=== PATIENT | male | born 1965 | race Caucasian/White ===

== ENCOUNTER 2017-07-12 05:23 | Day surgery (SDC) | payer OTHER ==
[~2017-07-12] VITALS: Ht 180.3 cm; Wt 88.5 kg
--- NOTE | ~2017-07-12 | O ---
[facility] [place] [address] OPERATIVE REPORT Name: AUBREY PADILLA [facility] [id number] Admission: 07/12/17 Attend Phys: Cecilio Pabon MD Discharge: 07/12/17 Date of : 67 Report #: [id number] THIS REPORT FOR: //name// CC: Sina Hoff DATE OF SERVICE: 07/12/2017 PREOPERATIVE DIAGNOSIS: Tumor of left lower lid, left medial canthus, and left upper lid. POSTOPERATIVE DIAGNOSES: Tumor of left lower lid, left medial canthus, and left upper lid, basal cell carcinoma with extension onto left cheek. PROCEDURE: Excision of tumor of left medial canthus, left upper lid, left lower lid and cheek with frozen section control of margins, fasciocutaneous flap repair of left lower lid and cheek with myocutaneous flap repair of left upper lid, and full thickness skin graft repair of medial canthal defect with silicone lacrimal intubation and nasal surgical video endoscopy. SURGEON: Cecilio Pabon M.D. WIRE TEMPERER: None. ANESTHESIA: General. COMPLICATIONS: None. INDICATIONS FOR SURGERY: This 51-year-old gentleman has a nodule or ulcerative lesion that is of considerable size in his left medial canthus that appears to be basal cell carcinoma. It directly overlies his lacrimal outflow tract. He presents today for excision of this lesion with frozen sections and subsequent repair of that defect. Informed consent was obtained to include but not limited to the potential risk for loss of vision, bleeding, infection, failure to improve the problem, and the potential need for further surgery or treatment. DESCRIPTION OF PROCEDURE: The patient was taken to the operating room where general anesthesia was administered. The left medial canthal area, the left upper lid, the left lower lid and the left cheek in addition to the left side of the nose were anesthetized with Xylocaine with epinephrine mixed with Marcaine and Wydase. The left side of the nose was then packed with an Afrin soaked cottonoid. The patient was subsequently prepped and draped in the usual sterile fashion. A fine tip skin marking pen was then utilized to outline the lesion including [facility] [address] [place] [address] OPERATIVE REPORT Name: AUBREY PADILLA Room #: DEP [facility] Fabricio.#: [id number] Admission: 07/12/17 Attend Phys: Cecilio Pabon MD Discharge: 07/12/17 Date of : 67 Report #: [id number] approximately 2 mm of normal appearing tissue around the margins of the lesion. The incisions were then made with a 15 blade around the circumference of the lesion. The initial incision went through the angular artery. The lesion was then dissected free down off of the medial canthal tendon and the orbicularis muscle as best possible and then oriented on a drawing for the awaiting pathologist. Hemostasis was achieved in the field that she snapped for us as specimen. She found that the lesion was indeed a basal cell carcinoma and that all of the margins were positive. An additional 2 mm to 3 mm of tissue was then taken around the entire circumference of the lesion extending across the lower lid down on to the cheek, back up onto the bridge of the nose, around the medial canthus and then back up on the upper lid, back around to the eyelid margin. These specimens were then all oriented for the pathologist. Hemostasis was achieved in the field with diligent pinpoint monopolar cautery. She snapped for us these specimens and found that the margins for now are clear. The defect of this size was obviously much larger than had originally been anticipated. The right upper lid was then anesthetized laterally anticipating a full thickness skin graft would be necessary. The superior and inferior puncta were then dilated on the left side. Neely tubes were then passed through the canaliculi and then down into the nose through the nasolacrimal duct. The cottonoids were removed from the nose and the nasal vault inspected with a video endoscope. A Neely hook was then used to secure the Neely tubes under the inferior turbinate as they were drawn out the nares. The silicone tubes were secured to themselves with 3 square throws and then to the lateral wall of the nose with a 5-0 Prolene suture. A fasciocutaneous flap was then developed to correct the lower lid and cheek defect. A subciliary incision was then extended across the width of the lid out directed more superiorly when it reached the temporal fossa towards the top of the ear before turning inferiorly. A sharp dissection was then undertaken as the fasciocutaneous flap was elevated and then rotated into position. Multiple interrupted deep Vicryl sutures were used to hold the flap as it was rotated. It was rotated all the way up to the nasojugal fold. The flap was closed with multiple interrupted deep Vicryl sutures and then 6-0 plain gut sutures and 7-0 Vicryl sutures more superficially. A Burow triangle was excised inferiorly and then placed on the back table in a moistened sponge. A myocutaneous flap was then developed superiorly to correct the defect that extended on the upper lid. Hemostasis was then re-achieved. This flap was then advanced and closed with interrupted 6-0 plain gut sutures and 7-0 Vicryl sutures. The Burow triangle excised inferiorly appeared to be potentially adequate to [facility] [address] [place] [address] OPERATIVE REPORT Name: AUBREY PADILLA Room #: [facility]#: [id number] Admission: 07/12/17 Attend Phys: Cecilio Pabon MD Discharge: 07/12/17 Date of : 67 Report #: [id number] correct the defect on the medial canthus. It was subsequently thinned and secured into the defect on to the bridge of the nose with interrupted 6-0 plain gut sutures and 7-0 Vicryl sutures. The wounds were then cleaned and dressed with erythromycin ophthalmic ointment followed by layered Telfa pad over the full thickness skin graft to provide tension in this area. Two eye pads were then placed followed by silk tape that was held in place with Mastisol. The patient was subsequently transported to the recovery area having tolerated the procedure well with a larger defect than what had originally been anticipated. <ELECTRONICALLY SIGNED> By: Cecilio Pabon MD 07/16/17 0618 [id number] Cecilio Pabon MD /nt
--- NOTE | ~2017-07-12 | S ---
[facility] [place] [address] SURGICAL PATH RPT PROCEDURE Name: PHIL PADILLA Room #: DEP [facility]..#: [id number] Admission: 07/12/17 Date of : 67 Discharge: 07/12/17 Report #: [id number] Path Case #: [id number] PATHOLOGY REPORT COLLECTION DATE: 07/12/2017 RECEIVED DATE: 07/12/2017 SUBMITTING PHYS: Dr. Cecilio Pabon OTHER PHYS: Dr. Sina Gomes SPECIMEN(S) RECEIVED: A.Lesion left lower lid medial canthus B.Left lower lid lesion-additional margins * * * * * * * * * * * * FINAL DIAGNOSIS: A. "Lesion left lower lid medial canthus", excision: - BASAL CELL CARCINOMA, NODULOINFILTRATIVE SUBTYPE; INVOLVING THE 12-3:00, 3-6:00, AND 9-12:00 SIDE SURGICAL MARGINS. B. "Left lower lid lesion-additional margins", reexcision: - Superior medial surgical margin negative for invasive tumor. - Superior lateral surgical margin negative for invasive tumor. - Inferior medial surgical margin negative for invasive tumor. - Inferior lateral surgical margin negative for invasive tumor. COMMENT: Within the additional surgical margins (part B), the frozen sections were submitted as true shave margins. All new / true surgical margins are free of invasive tumor. (CLW:silvia; 07/16/2017) PATHOLOGIST: Patricia Salamanca M.D. REPORT ELECTRONICALLY SIGNED BY: Patricia Salamanca M.D. DATE/TIME: 07/16/2017 18:55 * * * * * * * * * * * * GROSS PATHOLOGY: A. The first specimen is received fresh from the OR, labeled "Phil Padilla, and lesion left lower lid medial canthus". It consists of an oriented ellipse of almonte-white skin and subcutaneous tissue measuring 1.2 x 1.0 cm. It is excised to a depth of 0.4 cm. It is oriented per Dr. Pabon in the OR and superior is designated 12:00. The margins are inked as follows: 12:00-6:00-blue, 6:00-9:00-black, and 9:00-12:00-red. There is a separately submitted linear portion of skin and subcutaneous tissue measuring 0.7 x 0.2 x 0.2 cm. This fragment is inked green. The larger fragment is serially sectioned and the entire tissue is submitted for one frozen [address] [address] SURGICAL PATH RPT PROCEDURE Name: PHIL PADILLA Room #: [facility]#: [id number] Admission: 07/12/17 Date of : 67 Discharge: 07/12/17 Report #: [id number] Path Case #: [id number] section. The frozen section is then submitted as A1. B. The second specimen is received fresh from the OR, labeled "Marlene, Phil J, and left lower lid lesion additional margins". There are four additional linear fragments of skin and subcutaneous tissue further designated by Dr. Pabon in the OR as superior medial, inferior medial, inferior lateral and superior lateral. The superior medial segment measures 0.9 x 0.2 x 0.5 cm. It is inked red. The inferior medial segment measures 1.5 x 0.3 x 0.4 cm. It is inked black. The inferior lateral segment measures 1.5 x 0.3 x 0.3 cm. It is inked blue. The superior lateral segment measures 0.6 x 0.3 x 0.4 cm. It is inked green. All four tissues are submitted for one frozen section. The frozen section is then submitted as B1. (CLW:micha; 07/12/2017) FROZEN SECTION DIAGNOSIS: (Patricia Salamanca M.D., 07/12/2017) A. "Lesion left lower lid medial canthus": - Squamoproliferative lesion (basal cell carcinoma); multiple positive side margins. B. "Left lower lid lesion additional margins": - Superior medial-negative, superior lateral-negative, inferior medial-negative, inferior lateral-negative. The frozen sections were discussed with Dr. Cecilio Pabon in the operating room immediately following the procedures and written reports were placed in the patient's chart. Testing performed by [facility] at [address], [place] [address] (CLW:micha; 07/12/2017) CLINICAL HISTORY: Excision lesion eyelid INITIAL CPT CODE(S): A; 35410, 42234 B; 89425, 30920(4) Professional services performed by [facility] at [facility], [address] [address]. Technical services performed by [facility] at [address] [place] [address], [address], [place] [address]. [facility] [address] [address] PHONE: [phone] DIRECTOR: Agustin Dyer M.D. [address] [address] SURGICAL PATH RPT PROCEDURE Name: PHIL PADILLA Room #: DEP [facility] YelitzaR.#: [id number] Admission: 07/12/17 Date of : 67 Discharge: 07/12/17 Report #: [id number] Path Case #: [id number] * * * END OF REPORT * * *
[~2017-07-12 05:23] MED LIST: BACTRIM DS TAB1 EACH PO; STRIBILD TABLE1 EACH PO
[2017-07-12 09:43] VITALS: BP 131/85
== END 2017-07-12 10:20 | disposition home or self-care (01) ==
LOC: TBA 05:23 → OR 05:23
DX: C44.119 Basal cell carcinoma of skin of left eyelid, including canthus (principal); Z98.890 Other specified postprocedural states; Z87.891 Personal history of nicotine dependence
CPT/HCPCS: 50010; 50101; 50398; 51636; 51777; 56528; 56531; 62110; 62900; 64037; 70005